=== PATIENT | female | born 1975 | race African-American/Black ===

== ENCOUNTER 2023-01-30 20:11 | Emergency (ER) | payer BC | END 2023-01-30 20:59 | disposition home or self-care (01) | LOC: MADERS 20:11 | DX: U07.1 COVID-19 (principal); I10 Essential (primary) hypertension; E11.9 Type 2 diabetes mellitus without complications | CPT/HCPCS: 99281 ==

== ENCOUNTER 2025-07-04 18:52 | Emergency (ER) | payer BC, OTHER | END 2025-07-04 19:44 | disposition home or self-care (01) | LOC: MADERS 18:52 | DX: R51.9 Headache, unspecified (principal); E03.9 Hypothyroidism, unspecified; E11.9 Type 2 diabetes mellitus without complications; I10 Essential (primary) hypertension; Z79.899 Other long term (current) drug therapy; Z79.890 Hormone replacement therapy; Z79.85 Long-term (current) use of injectable non-insulin antidiabetic drugs; V49.40XA Driver injured in collision with unspecified motor vehicles in traffic accident, initial encounter | CPT/HCPCS: 99283 ==